=== PATIENT | male | born 1990 | race Caucasian/White ===

== ENCOUNTER 2021-07-10 10:21 | Emergency (ER) | payer BC ==
[~2021-07-10] VITALS: Ht 182.9 cm; Wt 81.6 kg
--- NOTE | 2021-07-10 11:45 | NUR ---
Dr Torres at the bedside for MSE.
[2021-07-10 12:28] LABS: HEMATOCRIT 42.4 % (36.7-47.1); MEAN CORPUSCULAR HEMOGLOBIN 30.7 uug (23.8-33.4); MEAN CORPUSCULAR VOLUME 90.2 fL (73.0-96.2); PLATELET COUNT (AUTO) 260 K/uL (152-348)
[2021-07-10 12:43] LABS: ALANINE AMINOTRANSFERASE 30 U/L (16-63); ALKALINE PHOSPHATASE 42 U/L (50-136); ASPARTATE AMINOTRANSFERASE 19 U/L (15-37); BILIRUBIN,DIRECT 0.1 mg/dL (0.0-0.2); BILIRUBIN,TOTAL 0.4 mg/dL (0.2-1.0); CARBON DIOXIDE 30 mmol/L (21-32); CHLORIDE 104 mmol/L (98-107); CREATININE 0.9 mg/dL (0.6-1.3); GLUCOSE 99 mg/dL (74-106); POTASSIUM 4.1 mmol/L (3.5-5.1); TOTAL PROTEIN, SERUM 7.9 g/dL (6.4-8.2); UREA NITROGEN, BLOOD 11 mg/dL (7-18)
--- NOTE | 2021-07-10 12:51 | NUR ---
Patient is resting comfortably in bed with eyes closed, NAD noted.
[2021-07-10 13:04] VITALS: BP 139/65
--- NOTE | 2021-07-10 13:06 | NUR ---
Patient discharged to home in stable condition. Written and verbal after care instructions given. Patient verbalizes understanding of instructions. Stressed follow up or return to ER for worsening s/s.
== END 2021-07-10 13:06 | disposition home or self-care (01) ==
LOC: ER 10:21
DX: R42 Dizziness and giddiness (principal); U09.9 Post COVID-19 condition, unspecified; R00.1 Bradycardia, unspecified
CPT/HCPCS: 36415; 71045; 84484; 85025; 85730; 93005; A4663